=== PATIENT | male | born 1980 | race Caucasian/White ===

== ENCOUNTER 2018-09-23 19:48 | Emergency (ER) | payer MEDICAID ==
[2018-09-23] MEDS: IBUPROFEN 600 MG TAB PO (21:34)
[2018-09-23] MEDS: LIDOCAINE 4% CR TOP (21:35)
[2018-09-23] MEDS: DIPHTH/TET/ACEL PERTUSS (ADULT) 0.5 ML VIAL IM* (21:35)
[2018-09-23] MEDS: LIDOCAINE 1% (MDV) 20 ML INJ SC (21:35)
== END 2018-09-23 23:40 | disposition home or self-care (01) ==
LOC: FTE 19:48
DX: S60.451A Superficial foreign body of left index finger, initial encounter (principal); F17.210 Nicotine dependence, cigarettes, uncomplicated; W45.8XXA Other foreign body or object entering through skin, initial encounter; Y92.9 Unspecified place or not applicable; Z23 Encounter for immunization
CPT/HCPCS: 64450; 90471; 90715; 99283-25